=== PATIENT | male | born 1975 | race Caucasian/White ===

== ENCOUNTER 2017-10-11 16:07 | Observation (INO) ==
--- NOTE | 2017-10-11 16:27 | ED ---
HPI General Chief Complaint: Chest Pain Stated Complaint: sob/chest/pain in left arm Time Seen by Provider: 10/11/17 16:24 Source: patient Mode of arrival: ambulatory Limitations: no limitations History of Present Illness HPI narrative: 41-year-old male patient presents to the ER today because of 1 day onset of intermittent chest discomfort that lasts for an hour at a time and goes away. He states is currently gone. He has some shortness of breath related to, tingling in his fingers, and states he has been having indigestion and nausea. He denies any abdominal pains, fevers, coughing, or other symptoms. He reports he has had similar episodes in the past, had been evaluated by cardiology but never finished his workup. He also reports history of anxiety attacks. Complete Quality Measures for STEMI Alert Patients Related Data Home Medications Medication Instructions Recorded Confirmed No Known Home Medications 10/11/17 10/11/17 Allergies Allergy/AdvReac Type Severity Reaction Status Date / Time No Known Allergies Allergy Unverified 10/11/17 16:10 Review of Systems Except as stated in HPI: all other systems reviewed are negative [facility] Medical History Medical History Anxiety (Acute) Cervical spondylitis (Acute) Chronic low back pain (Acute) Surgical History Surgical History History of appendectomy (Acute) Social History Social History Substance History: No History of Abuse Second Hand Smoke Exposure: No Smoking Status: Former smoker Tobacco Type: Cigarettes How Often Do You Have a Drink Containing Alcohol: Monthly or less Recent Travel in [facility] within the Last 8 Weeks: No Recent Out of Country Travel within the Last 8 Weeks: No Immunization History Tetanus Immunization: <5 Years Hx Influenza Vaccine This Season: No Exam Narrative Exam Narrative: GENERAL: Well-developed middle-age male patient currently in mild distress. Awake and oriented x3. SKIN: Focused skin assessment warm/dry. HEAD: Atraumatic. Normocephalic. EYES: Pupils equal and round. No scleral icterus. No injection or drainage. ENT: No nasal bleeding or discharge. Mucous membranes pink and moist. NECK: Trachea midline. No JVD. Supple. CARDIOVASCULAR: Regular rate and rhythm. No murmur appreciated. RESPIRATORY: No accessory muscle use. Clear to auscultation. Breath sounds equal bilaterally. GASTROINTESTINAL: Abdomen soft, non-tender, nondistended. Hepatic and splenic margins not palpable. MUSCULOSKELETAL: No obvious deformities. No clubbing. No cyanosis. No edema. NEUROLOGICAL: Awake and alert. No obvious cranial nerve deficits. Motor grossly within normal limits. Normal speech. PSYCHIATRIC: Appropriate mood and flat affect; insight and judgment normal. Course Hospital Course: EKG did not show dysrhythmias or ST changes. Lab work was fairly unremarkable. D-dimer is negative. Chest x-ray is unremarkable. On reevaluation at 5:20 PM , he states that his chest pain is back and is currently 5 out of 10. At this point, my plan would be to admit him for further evaluation of chest pains in the chest pain center. Initial Documented Vital Signs Pulse Rate 64 10/11/17 16:11 Blood Pressure 124/76 10/11/17 16:11 Pulse Oximetry 100 10/11/17 16:11 Last Documented Vital Signs Pulse Rate 64 10/11/17 16:11 Blood Pressure 124/76 10/11/17 16:11 Pulse Oximetry 100 10/11/17 16:45 Medical Decision Making Differential Diagnosis Differential Diagnosis: ACS versus dysrhythmias versus anxiety attack Lab Data Result diagrams: 10/11/17 16:25 10/11/17 16:25 Lab Results 10/11/17 10/11/17 10/11/17 Range/Units 16:25 16:25 16:25 CBC w Diff Auto diff final WBC 6.5 (4.0-11.0) th/mm3 RBC 4.78 (4.50-5.90) mil/mm3 Hgb 15.3 (13.0-17.0) gm/dL Hct 45.4 (39.0-51.0) % MCV 94.9 (80.0-100.0) fL MCH 32.0 (27.0-34.0) pg MCHC 33.8 (32.0-36.0) % RDW 12.8 (11.6-17.2) % Plt Count 196 (150-450) th/mm3 MPV 10.0 (7.0-11.0) fL Neut % (Auto) 50.4 (16.0-70.0) % Lymph % (Auto) 39.4 (9.0-44.0) % [place] % (Auto) 7.7 (0.0-8.0) % Eos % (Auto) 1.6 (0.0-4.0) % Baso % (Auto) 0.9 (0.0-2.0) % Neut # (Auto) 3.2 (1.8-7.7) th/mm3 Lymph # (Auto) 2.6 (1.0-4.8) th/mm3 [place] # (Auto) 0.5 (0.0-0.9) th/mm3 Eos # (Auto) 0.1 (0.0-0.4) th/mm3 Baso # (Auto) 0.1 (0.0-0.2) th/mm3 WBC Differential . Differential Comment . PT 10.1 (9.8-11.6) sec INR 1.0 Ratio APTT 26.8 (24.3-30.1) sec D-Dimer Quant (PE/DVT) Less than 0.19 (0.00-0.50) mg/L FEU Sodium 139 (136-145) meq/L Potassium 3.6 (3.5-5.1) meq/L Chloride 105 (98-107) meq/L Carbon Dioxide 27.1 (21.0-32.0) meq/L Anion Gap 7 (5-15) meq/L BUN 16 (7-18) mg/dL Creatinine 1.40 H (0.60-1.30) mg/dL Estimated GFR 56 L (>89) mL/min Random Glucose 107 H (74-106) mg/dL Calcium 9.2 (8.5-10.1) mg/dL Troponin I Less than 0.02 L (0.02-0.05) ng/mL Imaging Data Radiologist's impression: Chest X-Ray 10/11/17 16:24 CONCLUSION: No acute cardiopulmonary disease. Discharge Plan Discharge Disposition Patient Disposition: 30 Still Patient Discharge Condition Condition: Stable Discharge Details Anticipated Discharge Date: 10/11/17 Diagnosis: Atypical chest pain Physicians Team ED Provider: Anna Diana Primary Care Provider: UNKNOWN, Rxs /Orders / Referrals /Forms Prescriptions: No Action No Known Home Medications RF: 0 Discharge Instructions Patient Printed Instructions: Chest Pain (ED) Status ED Status: With Doctor
[2017-10-11 16:48] LABS: Baso # (Auto) 0.1 th/mm3 (0.0-0.2); Baso % (Auto) 0.9 % (0.0-2.0); Eos # (Auto) 0.1 th/mm3 (0.0-0.4); Eos % (Auto) 1.6 % (0.0-4.0); Hematocrit 45.4 % (39.0-51.0); Hemoglobin 15.3 gm/dL (13.0-17.0); Lymph # (Auto) 2.6 th/mm3 (1.0-4.8); Lymph % (Auto) 39.4 % (9.0-44.0); Mean Corpuscular HGB Conc 33.8 % (32.0-36.0); Mean Corpuscular Volume 94.9 fL (80.0-100.0); Mono # (Auto) 0.5 th/mm3 (0.0-0.9); Mono % (Auto) 7.7 % (0.0-8.0); Neut # (Auto) 3.2 th/mm3 (1.8-7.7); Neut % (Auto) 50.4 % (16.0-70.0); Platelet Count 196 th/mm3 (150-450); Red Blood Count 4.78 mil/mm3 (4.50-5.90); Red Cell Distribution Width 12.8 % (11.6-17.2); White Blood Count 6.5 th/mm3 (4.0-11.0)
[2017-10-11 16:49] LABS: Chloride 105 meq/L (98-107); Potassium 3.6 meq/L (3.5-5.1); Sodium 139 meq/L (136-145)
[2017-10-11 16:51] LABS: Calcium 9.2 mg/dL (8.5-10.1)
[2017-10-11 16:52] LABS: Anion Gap 7 meq/L (5-15); Blood Urea Nitrogen 16 mg/dL (7-18); Carbon Dioxide 27.1 meq/L (21.0-32.0); Glucose,Random 107 mg/dL (74-106)
[2017-10-11 16:55] LABS: Glomerular Filtration Rate 56 mL/min (>89)
[2017-10-11 16:56] LABS: Activated Partial Thrombo Time 26.8 sec (24.3-30.1); Prothrombin Time 10.1 sec (9.8-11.6)
--- NOTE | 2017-10-11 17:02 | XR ---
EXAM DATE: 10/11/2017 4:51 PM EDT AGE/SEX: 41 years / Male INDICATIONS: Chest pain today CLINICAL DATA: This is the patient's initial encounter. Patient reports that signs and symptoms have been present for 1 day and indicates a pain score of 3/10. MEDICAL/SURGICAL HISTORY: None. None. COMPARISON: No prior exams available for comparison. FINDINGS: The lungs are clear without infiltrate, nodule, or mass. There is no appreciable pleural effusion for technique. Heart and mediastinum are unremarkable. CONCLUSION: No acute cardiopulmonary disease. Electronically signed by: Niki Figueroa MD 10/11/2017 5:00 PM EDT
[2017-10-11] MEDS ORDERED: Morphine Inj 4 MG/ML Vial IV.PUSH PRN (18:05)
[2017-10-11] MEDS ORDERED: ALPRAZolam 0.25 MG Tablet PO PRN (18:05)
--- NOTE | 2017-10-11 18:13 | P.HPIM ---
History of Present Illness Primary Care Physician: UNKNOWN Chief Complaint: Chest pain and fatigue History of Present Illness: Patient is a very pleasant 41-year-old gentleman who admits a chest pain which is left-sided radiating into the deep left chest and non-exertional. It occurs at rest and is intermittent without exacerbating or relieving factors. He does admit that he had some dyspepsia after having some pizza but that went away on its own and was a different sensation. He says he has some associated shortness of breath and numbness in his fingers and toes. He reports being dizzy and feeling quite lightheaded. His heart rate here on telemetry has been in the 60s. He reports a "arrhythmia" that was diagnosed in his 20s but he does not have any further details. He takes no medications [id number] or prescription and leaves a rather sedentary life. He reports issues with anxiety and cervical spondylitis but does not take pain medication or anxiety medications. He has a family history of coronary disease in his father but is not sure what kind or the age. Chest x-ray on my review shows no acute cardiopulmonary disease. Patient has come to the hospital and will be observed for further evaluation and treatment of atypical chest pain. - Diagnosis (1) Atypical chest pain Review of Systems All other systems reviewed negative except as stated in HPI PMFSH - History History Provided By: Patient - Medical History Medical History: Medical History (Last Reviewed 10/11/17 @ 18:09 by Lisa Edwards MD) Anxiety Cervical spondylitis Chronic low back pain - Surgical History Surgical History: Surgical History (Last Reviewed 10/11/17 @ 18:09 by Lisa Edwards MD) History of appendectomy - Family History Family History: Family History (Last Updated 10/11/17 @ 18:09 by Lisa Edwards MD) Other Coronary artery disease - Tobacco History Second Hand Smoke Exposure: No Tobacco Use In Past 30 Days: No (QUIT IN MARCH) Smoking Status: Former smoker Tobacco Type: Cigarettes - Alcohol History How Often Do You Have a Drink Containing Alcohol: Monthly or less - Substance Use History Substance History: No History of Abuse - Travel History Recent Travel in the [place] Within the Last 8 Weeks: No Recent Travel Out of the Country Within the Last 8 Weeks: No - Immunization History Tetanus Immunization: <5 Years Hx Influenza Vaccine This Season: No Medications and Allergies Active Medications: Active Medications Sodium Chloride (Ns Flush) 2 ml IV.FLUSH UNSCH PRN PRN Reason: FLUSH AFTER USING IV ACCESS Allergies Allergy/AdvReac Type Severity Reaction Status Date / Time No Known Allergies Allergy Unverified 10/11/17 16:10 Home Medications Medication Instructions Recorded Confirmed Type No Known Home Medications 10/11/17 10/11/17 History Exam Vital signs: Vital Signs 10/11/17 16:11 10/11/17 16:45 10/11/17 17:42 Pulse Rate 64 64 Respiratory Rate 16 Blood Pressure 124/76 112/68 Pulse Oximetry 100 100 100 Intake & Output 10/10/17 10/11/17 10/11/17 18:59 06:59 18:59 Weight 78 kg Narrative: GENERAL: Patient calm resting and without complaints SKIN: Warm and dry. No rashes or ecchymotic injuries EYES: Pupils equal and round. No scleral icterus. No injection or drainage. ENT: External ear exam normal. No acute nasal bleeding or discharge. Mucous membranes pink and moist. CARDIOVASCULAR: Irregular sinus bradycardia. No murmurs gallops or rubs appreciated RESPIRATORY: Good air flow and effort without accessory muscle use. Clear to auscultation. Breath sounds equal bilaterally. GASTROINTESTINAL: Abdomen soft, non-tender, nondistended. Hepatic and splenic margins not palpable. MUSCULOSKELETAL: Extremities without clubbing, cyanosis, or edema. No obvious deformities. NEUROLOGICAL: Awake and alert. No obvious cranial nerve deficits. Motor grossly within normal limits. Five out of 5 muscle strength in the arms and legs. Normal speech. Results - Labs CBC & Chem 7: 10/11/17 16:25 10/11/17 16:25 Labs: Short CBC 10/11/17 Range/Units 16:25 WBC 6.5 (4.0-11.0) th/mm3 Hgb 15.3 (13.0-17.0) gm/dL Hct 45.4 (39.0-51.0) % Plt Count 196 (150-450) th/mm3 BMP 10/11/17 16:25 Sodium 139 Potassium 3.6 Chloride 105 Carbon Dioxide 27.1 BUN 16 Creatinine 1.40 H Calcium 9.2 Cardiac Enzymes 10/11/17 Range/Units 16:25 Troponin I Less than 0.02 L (0.02-0.05) ng/mL - Imaging Impressions Chest X-Ray 10/11/17 16:24 CONCLUSION: No acute cardiopulmonary disease. Caprini VTE Risk Assessment Caprini VTE Risk Assessment: No/Low Risk (score <= 1) Caprini Risk Assessment Model: Point Value = 1 Point Value = 2 Point Value = 3 Point Value = 5 Age 41-60 Minor surgery BMI > 25 kg/m2 Swollen legs Varicose veins or History of unexplained or recurrent spontaneous Oral contraceptives or hormone replacement Sepsis (< 1 month) Serious lung disease, including pneumonia (< 1 month) Abnormal pulmonary function Acute myocardial infarction Congestive heart failure (< 1 month) History of inflammatory bowel disease Medical patient at bed rest Age 61-74 Arthroscopic surgery Major open surgery (> 45 min) Laparoscopic surgery (> 45 min) Malignancy Confined to bed (> 72 hours) Immobilizing plaster cast Central venous access Age >= 75 History of VTE Family history of VTE Factor V Leiden Prothrombin [id number] Lupus anticoagulant Anticardiolipin antibodies Elevated serum homocysteine Heparin-induced thrombocytopenia Other congenital or acquired thrombophilia Stroke (< 1 month) Elective arthroplasty Hip, pelvis, or leg fracture Acute spinal cord injury (< 1 month) Prophylaxis Regimen: Total Risk Factor Score Risk Level Prophylaxis Regimen 0-1 Low Early ambulation 2 Moderate Order ONE of the following: *Sequential Compression Device (SCD) *Heparin 5000 units SQ BID 3-4 Higher Order ONE of the following medications: *Heparin 5000 units SQ TID *Enoxaparin/Lovenox 40 mg SQ daily (WT < 150 kg, CrCl > 30 mL/min) *Enoxaparin/Lovenox 30 mg SQ daily (WT < 150 kg, CrCl > 10-29 mL/min) *Enoxaparin/Lovenox 30 mg SQ BID (WT < 150 kg, CrCl > 30 mL/min) AND/OR *Sequential Compression Device (SCD) 5 or more Highest Order ONE of the following medications: *Heparin 5000 units SQ TID (Preferred with Epidurals) *Enoxaparin/Lovenox 40 mg SQ daily (WT < 150 kg, CrCl > 30 mL/min) *Enoxaparin/Lovenox 30 mg SQ daily (WT < 150 kg, CrCl > 10-29 mL/min) *Enoxaparin/Lovenox 30 mg SQ BID (WT < 150 kg, CrCl > 30 mL/min) AND *Sequential Compression Device (SCD) Assessment and Plan - Assessment (1) Atypical chest pain Code(s): R07.89 - Other chest pain Status: Acute Plan: Etiology unclear but definitely appears to be atypical in nature We will follow-up with nuclear stress test in a.m. Continue on telemetry for patient's bradycardia Add proton pump inhibitor Medications as needed for atypical chest pain symptoms Follow-up echo and TSH
[2017-10-11 19:53] LABS: Creatine Kinase 235 U/L (39-308)
[2017-10-11] MEDS: Famotidine 20 MG Tablet PO SCH (20:57)
[2017-10-11] MEDS: Aspirin 325 MG Tablet PO SCH (22:23)
[2017-10-11 23:19] LABS: Creatine Kinase 202 U/L (39-308)
[2017-10-11 23:32] LABS: Creatine Kinase MB 1.8 ng/mL (0.5-3.6)
--- NOTE | 2017-10-12 08:35 | P.PN ---
Subjective Interval history: Follow up chest pain. Patient seen and examined, lying in bed comfortably in no apparent distress. He does still state that he has mild midsternal chest discomfort has improved overnight. Will give one time dose of toradol, pain is reproducible. Patient does suffer from anxiety, he states that the symptoms may possibly be related. He denies ever having a cardiac stress test in the past. Will undergo a cardiac nuclear stress test to further rule out any ischemia. Serial troponins flat. EKG unremarkable. Patient may likely need a outpatient Holter monitor from PCP for dizziness. He states that he did have a Holter 2 years ago and it did not show anything significant. Patient does state that he has been eating and drinking well. Quit smoking in March. Physical Exam Vital signs: Vital Signs 10/11/17 16:11 10/11/17 16:45 10/11/17 17:42 Temperature Pulse Rate 64 64 Respiratory Rate 16 Blood Pressure 124/76 112/68 Pulse Oximetry 100 100 100 10/11/17 18:05 10/11/17 18:56 10/11/17 20:00 Temperature 98.0 F Pulse Rate 62 62 57 L Respiratory Rate 16 18 Blood Pressure 114/77 124/69 Pulse Oximetry 98 99 10/11/17 20:15 10/12/17 00:00 10/12/17 04:00 Temperature 97.0 F L 97.1 F L Pulse Rate 85 68 75 Respiratory Rate 18 18 Blood Pressure 115/70 115/64 Pulse Oximetry 99 99 98 Intake & Output 10/11/17 10/12/17 10/12/17 18:59 06:59 18:59 Intake Total 720 / 720 Output Total 500 / 500 Balance 220 / 220 Weight 78 kg 87.5 kg Intake: Oral 720 / 720 Output: Urine 500 / 500 Other: Weight On Admission 87.5 kg Narrative: GENERAL: Patient calm resting and without complaints SKIN: Warm and dry. No rashes or ecchymotic injuries EYES: Pupils equal and round. No scleral icterus. No injection or drainage. ENT: External ear exam normal. No acute nasal bleeding or discharge. Mucous membranes pink and moist. CARDIOVASCULAR: Irregular sinus bradycardia. No murmurs gallops or rubs appreciated RESPIRATORY: Good air flow and effort without accessory muscle use. Clear to auscultation. Breath sounds equal bilaterally. Some reproducible chest discomfort to palpation. GASTROINTESTINAL: Abdomen soft, non-tender, nondistended. Hepatic and splenic margins not palpable. MUSCULOSKELETAL: Extremities without clubbing, cyanosis, or edema. No obvious deformities. NEUROLOGICAL: Awake and alert. No obvious cranial nerve deficits. Motor grossly within normal limits. Five out of 5 muscle strength in the arms and legs. Normal speech. Results - Labs CBC & Chem 7: 10/11/17 16:25 10/11/17 16:25 Laboratory Results - last 24 hr 10/11/17 10/11/17 10/11/17 16:25 16:25 16:25 CBC w Diff Auto diff final WBC 6.5 RBC 4.78 Hgb 15.3 Hct 45.4 MCV 94.9 MCH 32.0 MCHC 33.8 RDW 12.8 Plt Count 196 MPV 10.0 Neut % (Auto) 50.4 Lymph % (Auto) 39.4 [place] % (Auto) 7.7 Eos % (Auto) 1.6 Baso % (Auto) 0.9 Neut # (Auto) 3.2 Lymph # (Auto) 2.6 [place] # (Auto) 0.5 Eos # (Auto) 0.1 Baso # (Auto) 0.1 WBC Differential . Differential Comment . PT 10.1 INR 1.0 APTT 26.8 D-Dimer Quant (PE/DVT) Less than 0.19 Sodium 139 Potassium 3.6 Chloride 105 Carbon Dioxide 27.1 Anion Gap 7 BUN 16 Creatinine 1.40 H Estimated GFR 56 L Random Glucose 107 H Calcium 9.2 Total Creatine Kinase CK-MB (CK-2) Troponin I Less than 0.02 L TSH 10/11/17 10/11/17 10/11/17 19:25 19:25 22:50 CBC w Diff WBC RBC Hgb Hct MCV MCH MCHC RDW Plt Count MPV Neut % (Auto) Lymph % (Auto) [place] % (Auto) Eos % (Auto) Baso % (Auto) Neut # (Auto) Lymph # (Auto) [place] # (Auto) Eos # (Auto) Baso # (Auto) WBC Differential Differential Comment PT INR APTT D-Dimer Quant (PE/DVT) Sodium Potassium Chloride Carbon Dioxide Anion Gap BUN Creatinine Estimated GFR Random Glucose Calcium Total Creatine Kinase 235 202 CK-MB (CK-2) 1.8 Troponin I Less than 0.02 L Less than 0.02 L TSH 1.330 - Imaging Impressions Chest X-Ray 07/29/18 16:24 CONCLUSION: No acute cardiopulmonary disease. Assessment and Plan - Assessment (1) Atypical chest pain Code(s): R07.89 - Other chest pain Status: Acute Plan: Patient is a very pleasant 41-year-old gentleman who admits a chest pain which is left-sided radiating into the deep left chest and non-exertional. It occurs at rest and is intermittent without exacerbating or relieving factors. -Etiology unclear but definitely appears to be atypical in nature. It is reproducible today, will give one-time dose of Toradol. Assess response. -Patient has been admitted to the chest pain center, serial EKGS and serial troponins have been ordered for ACS purposes. Serial troponins flat. -Added proton pump inhibitor. -Medications as needed for atypical chest pain symptoms. -Awaiting echocardiogram today. Pending. -Patient will undergo a cardiac myocardial perfusion scan to further rule out any ischemia. Patient is stable at this time and agreeable to plan. -Will continue cardiac telemetry, monitor for any arrhythmias. Reviewed from overnight and unremarkable. TSH normal. (2) Acute kidney injury Code(s): N17.9 - Acute kidney failure, unspecified Status: Acute Plan: Creatinine 1.4 and presentation. No previous history of kidney disease. Likely secondary to may be dehydration. Patient will be given a 500 mL bolus. - Plan Discharge Planning: Discharge home after nuclear stress test and echocardiogram.
[2017-10-12] MEDS ORDERED: Sodium Chlor 0.9% Inj 500 ML IV.SIG ONE (09:13)
[2017-10-12] MEDS ORDERED: Ketorolac Inj 30 MG/ML (IVP) Vial IV.PUSH ONE (10:00)
[2017-10-12] MEDS: Aspirin 325 MG Tablet PO SCH (10:03)
[2017-10-12] MEDS: Famotidine 20 MG Tablet PO SCH (10:04)
[2017-10-12] MEDS ORDERED: Regadenoson Inj 0.4 MG/5 ML Syringe IV.PUSH ONE (10:26)
--- NOTE | 2017-10-12 11:23 | NM ---
EXAM DATE: 10/12/2017 11:16 AM EDT AGE/SEX: 41 years / Male INDICATIONS:Coronary artery disease. Angina Left sided chest pain with dyspnea. CLINICAL DATA: This is the patient's initial encounter. Patient reports that signs and symptoms have been present for 1 day and indicates a pain score of 4/10. MEDICAL/SURGICAL HISTORY: None. Appendectomy. COMPARISON: No prior exams available for comparison. DOSE: 8.5 mCi Tc 99m Myoview at rest 25.4 mCi [id number] at stress 0.5 mg Lexiscan STRESS SYMPTOMS: Dyspnea, chest pain, tingling in bilateral arms and jaw pain. EJECTION FRACTION: 60 % TECHNIQUE: The patient underwent pharmacologic stress with infusion of prescribed dose. Continuous ECG tracing was monitored during stress. Gated SPECT imaging was performed after stress and conventi onal SPECT imaging was performed at rest. The examination was performed on a SPECT/CT scanner, both attenuation and non-corrected datasets were reviewed. FINDINGS: Distribution: The maximum perfused segment at stress is in the septal wall. Perfusion Study: The pattern of perfusion at stress is within normal limits. Gated Study: There are intact wall motion and wall thickening without hypokinetic or dyskinetic segm ents. The ejection fraction is calculated at 60%. RISK CATEGORY: Low (<1% Annual Motality Rate) CONCLUSION: Unremarkable myocardial perfusion. Electronically signed by: Preston Fernandez MD 10/12/2017 11:22 AM EDT
[2017-10-12 13:26] VITALS: BP 125/75; PULSE 61; RESP 17; TEMP 97.4; O2SAT 99
--- NOTE | 2017-10-12 22:01 | ECG ---
Date Performed: 10/11/2017 Time Performed: 22:48:44 PTAGE: 41 years EKG: Sinus rhythm NORMAL ECG INTERPRETATION BASED ON A DEFAULT AGE OF 40 YEARS PREVIOUS TRACING : 10/07/2017 21.29 Since the previous tracing, no significant change not ed DOCTOR: Sha Lombardo Interpretating Date/Time 10/12/2017 21:59:05
--- NOTE | 2017-10-12 22:03 | ECG ---
Date Performed: 10/11/2017 Time Performed: 19:24:48 PTAGE: 41 years EKG: SINUS BRADYCARDIA POSSIBLE LEFT ATRIAL ENLARGEMENT BORDERLINE ECG PREVIOUS TRACING : 10/11/2017 16.11 Since the previous tracing, no significant change noted DOCTOR: Sha Lombardo Interpretating Date/Time 10/12/2017 22:01:16
--- NOTE | 2017-10-12 22:05 | ECG ---
Date Performed: 10/11/2017 Time Performed: 16:11:28 PTAGE: 41 years EKG: Sinus rhythm POSSIBLE LEFT ATRIAL ENLARGEMENT BORDERLINE ECG NO PREVIOUS TRACING DOCTOR: Sha Lombardo Interpretating Date/Time 10/12/2017 22:04:30
--- NOTE | 2017-10-13 16:56 | TR ---
Date Performed: 10/12/2017 Time Performed: 10:31:56 DOCTOR: Mckenzie Jessica DRUG LIST: CLINICAL HISTORY: CHEST PAIN REASON FOR TEST: Chest pain REASON FOR ENDING: OBSERVATION: CONCLUSION: Lexiscan stress test was performed under standard four minute protocol. Radionucl[place] e was injected one minute prior to ending the test. No electrocardiographic abormalities were present to suggest ischemia. Nuclear imaging and interpretation are pending. COMMENTS: no ischemia
== END 2017-10-12 13:30 | disposition home or self-care (01) ==
LOC: PH3 16:07 → PHED 16:07 → PHEDA 16:07 → PH3 20:02
PROVIDERS: ADMIT Hospitalist; ATTEND Hospitalist
DX: F17.210 Nicotine dependence, cigarettes, uncomplicated; Z90.49 Acquired absence of other specified parts of digestive tract; F41.9 Anxiety disorder, unspecified; N17.9 Acute kidney failure, unspecified; R07.89 Other chest pain; M54.5 Low back pain; R94.31 Abnormal electrocardiogram [ECG] [EKG]; G89.29 Other chronic pain; Z82.49 Family history of ischemic heart disease and other diseases of the circulatory system